=== PATIENT | male | born 1930 | race Caucasian/White ===

== ENCOUNTER 2017-06-01 07:37 | Day surgery (SDC) | payer MEDICARE, BC ==
--- NOTE | 2017-06-01 08:04 | OR ---
Anesthesia Pre Procedure Eval Date of Service: 06/01/17 Pre Procedure Evaluation: Last Vital Signs Temp 36.3 C L 06/01/17 07:46 Pulse 65 06/01/17 07:46 Resp 16 06/01/17 07:46 BP 146/80 06/01/17 07:46 Pulse Ox 96 06/01/17 07:46 Anesthesia Pre Procedure Evaluation DATE: 06/01/2017. TIME: 0755. INDICATIONS: Occipital neuralgia. PAST MEDICAL HISTORY: This 86-year-old male who's been experiencing left side occipital headache since a nerve conduction study. He has had a course of medical management and physical therapy which has provided some relief. EXAM: Radiological reports and films were reviewed. Pain is 0/10 on pain scale at present. ASSESSMENT OF MEDICAL STATUS: O.K. to proceed with ultrasound guided occipital nerve block. PLANNED PROCEDURE: Left ultrasound-guided occipital nerve block. Home Medications: HOME MEDICATIONS Omeprazole [Prilosec] 20 mg PO BID 05/02/14 [Last Taken 11/10/14] Aspirin 325 mg PO DAILY 11/11/14 [Last Taken 05/26/17] Finasteride [Proscar] 5 mg PO DAILY 05/06/15 [Last Taken Unknown]
[2017-06-01] MEDS ORDERED: DEXAMETHASONE SOD PHOSPHATE 10 MG/ML VIAL IJ ONE (08:12)
[2017-06-01] MEDS ORDERED: BUPIVACAINE HCL 50 ML VIAL IJ ONE (08:12)
--- NOTE | 2017-06-01 08:28 | OR ---
Anesthesia Procedure Note - Anesthesia Procedure Note Date of Service: 06/01/17 Narrative: Vital Signs - Last Taken Temp 36.3 C L 06/01/17 07:46 Pulse 78 06/01/17 08:13 Resp 18 06/01/17 08:13 BP 176/98 06/01/17 08:13 Pulse Ox 96 06/01/17 08:13 O2 Oxygen Delivery Method Room Air 06/01/17 08:25 ANESTHESIA PROCEDURE NOTE Date of Procedure: 06/01/2017. Time of procedure: 809. Performed by: Alphonse Andrade CRNA [employer] Associate: None. Preprocedure diagnosis: Left Occipital neuralgia. Post procedure diagnosis: Same. Procedure: Left ultrasound guided occipital nerve block. Indications: This 86-year-old male who is been experiencing left- sided occipital headaches status post nerve conduction study. He has had failed course of oral medication and physical therapy. Findings: See below. Details of the procedure: The patient was brought back to operating room #3. The patient was then placed in the sitting position. The left occipital nerve was identified with ultrasound guidance. 10 mg preservative-free dexamethasone + 2 mL of 0.25% bupivacaine was injected in a fanlike pattern medial to the occipital artery under real-time ultrasound guidance. EBL: Minimal. Fluids: N/A. Specimen: N/A. Post procedure condition: The patient tolerated the procedure well. No complications were noted. Thank you for this consultation. Alphonse Andrade CRNA
[2017-06-01 09:04] VITALS: BP 155/85
== END 2017-06-01 07:38 | disposition home or self-care (01) ==
LOC: AMB 07:37
PROVIDERS: ATTEND Student in an Organized Health Care Education/Training Program
PROC: 3E0T3BZ Introduction of Anesthetic Agent into Peripheral Nerves and Plexi, Percutaneous Approach (ICD-10-PCS; principal; 2017-06-01 08:00)
DX: R51 Headache (principal)